=== PATIENT | male | born 1940 | race Caucasian/White ===

== ENCOUNTER 2024-09-21 08:38 | Day surgery (SDC) | payer MEDICARE ==
[~2024-09-21] VITALS: Ht 172.7 cm; Wt 69.8 kg
[~2024-09-21 08:38] MED LIST: ALBU90OI61; Balanced Salt Epinephrine Irrigation Solution 500 mL IR SCH; DOCU100 PO; Diazepam 2 MG Tab PO PRN; FLUSAL2505 INH; HYDACE10B PO; IRON325 MG PO; Lidocaine HCl/Pf 1% 5 ML VIAL XX SCH; Moxifloxacin HCL 0.5 MG/0.1 ML 0.4MLSYR RIGHTEYE SCH; Ondansetron 4 MG SoluTab MM PRN; PANT40 PO; PHENYLEPHRINE\\TROPICAMIDE\\TETRACAINE OPHTHALMIC DILATING SOLN RIGHTEYE PRN; PROM25 PO; Povidone-Iodine 450 DROP/30 ML Solution ONE; Povidone-Iodine 450 DROP/30 ML Solution RIGHTEYE SCH; TADA10TA PO; Tetracaine HCl/Pf 0.5% Opth Soln 4 ml ONE; Triamcinolone Inj Susp 40 MG / ML 1ML Vial INJ SCH; Triamcinolone Inj Susp 40 MG / ML 1ML Vial ONE; Ultram50 MG PO; Ventolin5 MG/1 ML INH; WARF2 PO; diazePAM 2 MG,diazePAM 5 MG PO SCH
[2024-09-21] MEDS ORDERED: Diazepam 2 MG Tab ONE (08:52)
[2024-09-21] MEDS ORDERED: Diazepam 5 MG Tab ONE (08:53)
--- NOTE | 2024-09-21 09:04 | NUR ---
09/21/24 0904 Princess Mccoy INITIAL ANXIETY PT REPORTS 10/01
[2024-09-21] MEDS ORDERED: albuterol sulfate HF (09:11)
[2024-09-21] MEDS ORDERED: LATANOPROST2.5 M3 (09:11)
[2024-09-21] MEDS ORDERED: LISI5 (09:12)
--- NOTE | 2024-09-21 10:08 | NUR ---
09/21/24 1008 Emily Chaudhary BP-115/83 P-62 SP02-99% 10L BLOW BY O2
--- NOTE | 2024-09-21 10:22 | NUR ---
09/21/[address] AT BEDSIDE
[2024-09-21 10:26] VITALS: BP 133/96
== END 2024-09-21 10:40 | disposition home or self-care (01) ==
LOC: ORSCSDS 08:38
PROVIDERS: Ophthalmology
PROC: 08RJ3JZ Replacement of Right Lens with Synthetic Substitute, Percutaneous Approach (ICD-10-PCS; principal; 2024-09-21 10:00)
DX: H25.813 Combined forms of age-related cataract, bilateral (principal); I10 Essential (primary) hypertension; H40.9 Unspecified glaucoma; Z79.899 Other long term (current) drug therapy
CPT/HCPCS: A9270; J3301; V2632

== ENCOUNTER 2024-09-29 09:07 | Day surgery (SDC) | payer MEDICARE ==
[~2024-09-29] VITALS: Ht 177.8 cm; Wt 69.4 kg
[~2024-09-29 09:07] MED LIST changes: +Diazepam 2 MG Tab ONE; +Diazepam 5 MG Tab ONE; +Diazepam 5 MG Tab PO SCH; +LATANOPROST2.5 M3; +LISI5; +Moxifloxacin HCL 0.5 MG/0.1 ML 0.4MLSYR LEFTEYE SCH; -Moxifloxacin HCL 0.5 MG/0.1 ML 0.4MLSYR RIGHTEYE SCH; +PHENYLEPHRINE\\TROPICAMIDE\\TETRACAINE OPHTHALMIC DILATING SOLN LEFTEYE PRN; -PHENYLEPHRINE\\TROPICAMIDE\\TETRACAINE OPHTHALMIC DILATING SOLN RIGHTEYE PRN; +Povidone-Iodine 450 DROP/30 ML Solution LEFTEYE SCH; -Povidone-Iodine 450 DROP/30 ML Solution RIGHTEYE SCH; +albuterol sulfate HF; -diazePAM 2 MG,diazePAM 5 MG PO SCH
--- NOTE | 2024-09-29 10:22 | NUR ---
09/29/24 Tracie2 Martina Larios 1016 BP 124/92, HR 56, O2% AT 97, RESP 16
[2024-09-29 10:54] VITALS: BP 137/91
== END 2024-09-29 10:47 | disposition home or self-care (01) ==
LOC: ORSCSDS 09:07
PROVIDERS: Ophthalmology
PROC: 08RK3JZ Replacement of Left Lens with Synthetic Substitute, Percutaneous Approach (ICD-10-PCS; principal; 2024-09-29 10:30)
DX: H25.812 Combined forms of age-related cataract, left eye (principal); Z96.1 Presence of intraocular lens; H40.1231 Low-tension glaucoma, bilateral, mild stage; I10 Essential (primary) hypertension; Z79.899 Other long term (current) drug therapy
CPT/HCPCS: A9270; J3301; V2632